=== PATIENT | female | born 1995 | race Caucasian/White ===

== ENCOUNTER 2017-03-31 01:39 | Emergency (ER) | payer MEDICAID ==
[~2017-03-31] VITALS: Ht 157.5 cm; Wt 79.4 kg
[~2017-03-31 01:39] MED LIST: CIPROFLOXACIN500 M1 PO; LORATIDINE 10 M10 M1 PO; MEDROLDOSEPACK PO; NOHOMEMEDICATIONS; PROCTOCREAM-HC30 G1 RC; PROTONIX40 MG PO; SEIZURE MEDICATION; TRINATE TABLET1 TAB PO
[2017-03-31] MEDS ORDERED: MIRENA1 EACH (02:07)
[2017-03-31 03:15] VITALS: BP 123/81
== END 2017-03-31 03:15 | disposition home or self-care (01) ==
LOC: M.ERS 01:39
DX: M25.561 Pain in right knee (principal); G40.909 Epilepsy, unspecified, not intractable, without status epilepticus; Z98.890 Other specified postprocedural states; Z88.5 Allergy status to narcotic agent; W18.39XA Other fall on same level, initial encounter; Y93.89 Activity, other specified; Y92.89 Other specified places as the place of occurrence of the external cause; Y99.8 Other external cause status

== ENCOUNTER → 2017-07-17 | Outpatient (CLI) | payer OTHER ==
[~2017-07-17] MED LIST changes: +MIRENA1 EACH
== END ==
LOC: M.LAB 09:42 → M.CT 10:00
DX: M54.08 Panniculitis affecting regions of neck and back, sacral and sacrococcygeal region (principal); R10.9 Unspecified abdominal pain

== ENCOUNTER → 2017-08-19 | Outpatient (CLI) | payer OTHER | LOC: M.ULTRA 15:34 | DX: Z09 Encounter for follow-up examination after completed treatment for conditions other than malignant neoplasm (principal); N83.202 Unspecified ovarian cyst, left side ==

== ENCOUNTER 2018-12-01 20:19 | Emergency (ER) | payer OTHER ==
[~2018-12-01] VITALS: Ht 157.5 cm; Wt 79.4 kg
[2018-12-01 20:33] LABS: URINE BILIRUBIN NEGATIVE (Negative); URINE BLOOD 2+ (Negative); URINE CLARITY CLEAR; URINE COLOR YELLOW; URINE GLUCOSE-RANDOM NEGATIVE (Negative); URINE KETONES NEGATIVE (Negative); URINE LEUKOCYTES-REFLEX NEGATIVE (Negative); URINE NITRITE-REFLEX NEGATIVE (Negative); URINE PROTEIN NEGATIVE (Negative); URINE SPECIFIC GRAVITY >= 1.030 (1.005-1.030); URINE UROBILINOGEN 0.2 E.U./dl (0.2-1.0)
[2018-12-01 20:35] VITALS: BP 149/89
[2018-12-01 20:38] LABS: MUCUS 0-3 Light strn/LPF (None Seen); SQUAMOUS >10 Many /LPF (0-3)
[2018-12-01 20:39] LABS: URINE WBC-REFLEX 0-5 Rare /HPF (0-5)
[2018-12-01 20:40] LABS: CASTS None Seen /LPF (None Seen); CRYSTALS None Seen /LPF (None Seen); URINE RBC 0-2 Rare /HPF (0-2)
[2018-12-01] MEDS ORDERED: BACTRIM DS TAB1 EACH PO (20:52)
== END 2018-12-01 20:57 | disposition home or self-care (01) ==
LOC: M.ERS 20:19
PROVIDERS: Emergency Medicine Emergency Medical Services
DX: N39.0 Urinary tract infection, site not specified (principal); Z88.5 Allergy status to narcotic agent; Z90.89 Acquired absence of other organs